=== PATIENT | male | born 1990 | race Caucasian/White ===

== ENCOUNTER 2021-10-29 06:20 | Emergency (ER) | payer BC ==
[~2021-10-29] VITALS: Ht 188 cm; Wt 83.9 kg
[2021-10-29 06:26] VITALS: BP 136/85
--- NOTE | 2021-10-29 06:26 | NUR ---
TO BED AMBULATORY
--- NOTE | 2021-10-29 06:34 | NUR ---
Dr. Burger examining patient.
--- NOTE | 2021-10-29 06:40 | NUR ---
31 YO M BIB SELF WITH C/C OF 8/10 LEFT BIG TOE PAIN S/P SLIP AND FALL ON THE WAY TO WORK ABOUT 30MINS AGO. PT STATES HE SLIPPED ON THE GRASS AND FEELS HE MAY HAVE FRACTURED HIS TOE. -SENSATION. PT ABLE TO MOVE TOE WITH SOME PAIN. +AMBULATORY WITH PAIN. DENIES TAKING MEDICATION FOR PAIN. PT DENIES HITTING. NO LOC. DENIES HX, RX AND ALLERGIES
[2021-10-29] MEDS ORDERED: IBUPROFEN 600 MG TAB ONE (06:48)
[2021-10-29] MEDS ORDERED: IBUPROFEN 600 MG TAB PO ONE (06:50)
[2021-10-29 07:18] VITALS: BP 136/85
--- NOTE | 2021-10-29 07:18 | NUR ---
Patient discharged with v/s stable. Written and verbal after care instructions given and explained. Patient verbalized understanding. Ambulatory with steady gait. All questions addressed prior to discharge. Advised to follow up with PMD.
== END 2021-10-29 07:18 | disposition home or self-care (01) ==
LOC: MED 06:20
DX: S92.422A Displaced fracture of distal phalanx of left great toe, initial encounter for closed fracture (principal); X58.XXXA Exposure to other specified factors, initial encounter; Y93.89 Activity, other specified; Y92.89 Other specified places as the place of occurrence of the external cause; Y99.8 Other external cause status
CPT/HCPCS: 73630; 99283; Q0092

== ENCOUNTER 2022-06-11 18:10 | Emergency (ER) | payer BC ==
[~2022-06-11] VITALS: Ht 188 cm; Wt 93.6 kg
[2022-06-11 18:48] VITALS: BP 123/71
[2022-06-11] MEDS ORDERED: ONDANSETRON 4 MG ODT PO ONE (19:00)
[2022-06-11] MEDS ORDERED: ONDA-188 PO (19:25)
[2022-06-11] MEDS ORDERED: FAMO-90 PO (19:25)
[2022-06-11] MEDS ORDERED: IMO2 PO (19:25)
[2022-06-11 20:10] VITALS: BP 120/78
--- NOTE | 2022-06-11 20:10 | NUR ---
Patient discharged with v/s stable. Written and verbal after care instructions given and explained. Patient alert, oriented and verbalized understanding of instructions. Ambulatory with steady gait. All questions addressed prior to discharge. ID band removed. Patient advised to follow up with PMD. Rx of PEPCID, ZOFRAN, LOPERAMIDE given. Patient educated on indication of medication including possible reaction and side effects. Opportunity to ask questions provided and answered.
== END 2022-06-11 20:10 | disposition home or self-care (01) ==
LOC: MED 18:10
DX: R11.2 Nausea with vomiting, unspecified (principal); R10.13 Epigastric pain; Z79.899 Other long term (current) drug therapy
CPT/HCPCS: 36415; 99283; Q0162

== ENCOUNTER 2023-01-08 23:28 | Emergency (ER) | payer BC ==
[~2023-01-08] VITALS: Ht 188 cm; Wt 90.7 kg
[~2023-01-08 23:28] MED LIST: FAMO-90 PO; IMO2 PO; ONDA-188 PO
[2023-01-08 23:50] VITALS: BP 122/88
--- NOTE | 2023-01-08 23:50 | NUR ---
TO BED AMBULATORY
[2023-01-09] MEDS ORDERED: NACL 0.9% 2,000 ML IV ONE (00:35)
[2023-01-09] MEDS ORDERED: ONDANSETRON 4 MG/2 ML VIAL IVP ONE (00:35)
[2023-01-09] MEDS ORDERED: LORazepam 2 MG/ML VIAL IVP ONE (00:35)
[2023-01-09 01:06] LABS: ALBUMIN 4.9 g/dL (3.4-5.0); ANION GAP 17.6 (8-16); ASPARTATE AMINOTRANSFERASE 18 U/L (15-37); CARBON DIOXIDE 25.6 mmol/L (21-32); CHLORIDE 102 mmol/L (98-107); CREATININE 1.1 mg/dL (0.6-1.3); GFR ARICAN-AMERICAN 101 mL/min (>90); GLUCOSE 158 mg/dL (74-106); LIPASE 91 U/L (73-393); POTASSIUM 3.2 mmol/L (3.5-5.1); SODIUM SERUM 142 mmol/L (136-145); TOTAL BILIRUBIN 1.4 mg/dL (0.0-1.0); UREA NITROGEN, BLOOD 23 mg/dL (7-18)
[2023-01-09 01:12] LABS: BASOPHILS # (AUTO) 0.1 K/uL (0.00-0.22); BASOPHILS % (AUTO) 0.5 % (0.0-2.0); EOSINOPHILS % (AUTO) 0.4 % (0.0-4.0); HEMATOCRIT 49.7 % (36-52); LYMPHOCYTES # (AUTO) 0.4 K/uL (2.0-11.5); MEAN CORPUSCULAR HEMOGLOBIN 30 pg (27-31); MEAN CORPUSCULAR HGB CONC 34 g/dL (33-37); MONOCYTES # (AUTO) 0.5 K/uL (0.8-1.0); MONOCYTES % (AUTO) 4.1 % (1.7-9.3); PLATELET COUNT (AUTO) 184 K/uL (140-450); RED BLOOD CELL COUNT(AUTO) 5.65 MIL/uL (4.20-6.10); RED CELL DISTRIBUTION WIDTH 13.5 % (11.6-13.7)
--- NOTE | 2023-01-09 01:17 | NUR ---
Urine collected sent to lab
[2023-01-09 01:27] LABS: BARBITURATE, URINE NEGATIVE ng/ml (NEG <=200); BENZODIAZEPINE, URINE NEGATIVE ng/mL (NEG <=200); CANNABINOID, URINE POSITIVE ng/mL (NEG <=50); COCAINE, URINE NEGATIVE ng/mL (NEG <=300); OPIATE, URINE NEGATIVE ng/mL (NEG <=2000); PHENCYCLIDINE SCREEN,URINE NEGATIVE ng/mL (NEG <=25)
[2023-01-09] MEDS ORDERED: POTASSIUM CHLORIDE 10 MEQ TABER PO ONE (01:40)
[2023-01-09] MEDS ORDERED: BEN10 PO (01:46)
[2023-01-09] MEDS ORDERED: ONDA-188 SL (01:46)
[2023-01-09 02:22] VITALS: BP 122/88
--- NOTE | 2023-01-09 02:23 | NUR ---
Patient discharged with v/s stable. Written and verbal after care instructions given and explained. New Rx bentyl and zosridhar. Patient verbalized understanding. Ambulatory with steady gait. All questions addressed prior to discharge. Advised to follow up with PMD.
== END 2023-01-09 02:23 | disposition home or self-care (01) ==
LOC: MED 23:28
DX: R11.2 Nausea with vomiting, unspecified (principal); R10.13 Epigastric pain; R19.7 Diarrhea, unspecified; Z79.899 Other long term (current) drug therapy
CPT/HCPCS: 36415; 80053; 80305; 83690; 85025; 96361; 96374; 96375; 99284; G0482; J2060; J2405; J7030